=== PATIENT | female | born 1985 | race Caucasian/White ===

== ENCOUNTER 2018-07-29 03:32 | Emergency (ER) | payer SELFPAY ==
--- NOTE | 2018-07-29 03:49 | EDM.PDOC ---
ED HPI GENERAL MEDICAL PROBLEM - General Chief Complaint: Abdominal Pain Stated Complaint: SHORTNESS OF BREATH Time Seen by Provider: 07/29/18 03:48 Source of Information: Reports: Patient - History of Present Illness INITIAL COMMENTS - FREE TEXT/NARRATIVE: HISTORY AND PHYSICAL: History of present illness: [Patient presents with right upper quadrant and epigastric pain 7 out of 10 is kept her awake over the last 2 nights bloated sensation, taking a deep breath increases pain no radiation to shoulder or back however she was describing some discomfort earlier in her back and had seen a chiropractor this did not seem to help at the time this is resolved at current She generally eats healthy over the last week she has been indulging greasy foods and deep fried foods which is unusual for her over the last couple of years she has been on a strict diet plan and has lost weight she at one time was 180 pounds she has 4 children No previous surgery no prior symptoms ] Review of systems: As per history of present illness and below otherwise all systems reviewed and negative. Past medical history: As per history of present illness and as reviewed below otherwise noncontributory. Surgical history: As per history of present illness and as reviewed below otherwise noncontributory. Social history: No reported history of drug or alcohol abuse. Family history: As per history of present illness and as reviewed below otherwise noncontributory. Physical exam: HEENT: Atraumatic, normocephalic, pupils reactive, negative for conjunctival pallor or scleral icterus, mucous membranes moist, throat clear, neck supple, nontender, trachea midline. Lungs: Clear to auscultation, breath sounds equal bilaterally, chest nontender. Heart: S1S2, regular, negative for clicks, rubs, or JVD. Abdomen: Soft, nondistended, tender on deep palpation in right upper quadrant as well as epigastrium no guarding or rebound no right lower quadrant tenderness Negative for masses or hepatosplenomegaly. Negative for costovertebral tenderness. Pelvis: Stable nontender. Genitourinary: Deferred. Rectal: Deferred. Extremities: Atraumatic, negative for cords or calf pain. Neurovascular unremarkable. Neuro: Awake, alert, oriented. Cranial nerves II through XII unremarkable. Cerebellum unremarkable. Motor and sensory unremarkable throughout. Exam nonfocal. Diagnostics: [CBC CMP UA lipase hCG ] Therapeutics: [Normal saline Toradol Proton X Morphine 2 mg IV Cipro 500 by mouth by mouth dailyFirst dose now [place] Cipro [place] diet Follow-up with general surgery for a HIDA scan consideration ] Impression: Biliary colic symptoms Gallbladder wall thickening on ultrasound [ abdominal pain ] Definitive disposition and diagnosis as appropriate pending reevaluation and review of above. 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 Musculoskeletal History: Reports: None Neurological History: Reports: None Psychiatric History: Reports: None Endocrine/Metabolic History: Reports: None Oncologic (Cancer) History: Reports: None - Infectious Disease History Infectious Disease History: Reports: Chicken Pox - Past Surgical History HEENT Surgical History: Reports: None Female Surgical History: Reports: Tubal Ligation Social & Family History - Family History Family Medical History: Noncontributory - Tobacco Use Smoking Status *Q: Current Some Day Smoker Years of Tobacco use: 10 Packs/Tins Daily: 0.1 - Recreational Drug Use Recreational Drug Use: No ED ROS GENERAL - Review of Systems Review Of Systems: See Below ED EXAM, GENERAL - Physical Exam Exam: See Below Course - Vital Signs Last Recorded V/S: Last Vital Signs Temp 97.2 F 07/29/18 03:34 Pulse 80 07/29/18 03:34 Resp 16 07/29/18 03:34 BP 117/89 07/29/18 03:34 Pulse Ox 100 07/29/18 03:34 - Orders/Labs/Meds Orders: Active Orders 24 hr Category Date Time Status CPK [CREATINE KINASE,CK] [CHEM] Stat Lab 07/29/18 04:03 Received Ciprofloxacin [Ciprofloxacin HCl] Med 07/29/18 06:06 Once 500 mg PO ONETIME ONE Morphine Med 07/29/18 06:06 Once 2 mg IVPUSH ONETIME ONE Medication Orders Morphine Sulfate (Morphine) 2 mg IVPUSH ONETIME ONE Stop: 07/29/18 06:07 Labs: Laboratory Tests 07/29/18 07/29/18 07/29/18 Range/Units 04:03 04:03 04:31 WBC 5.31 (4.0-11.0) K/uL RBC 4.50 (4.30-5.90) M/uL Hgb 13.6 (12.0-16.0) g/dL Hct 40.2 (36.0-46.0) % MCV 89.3 (80.0-98.0) fL MCH 30.2 (27.0-32.0) pg MCHC 33.8 (31.0-37.0) g/dL RDW Std Deviation 42.9 (28.0-62.0) fl RDW Coeff of Joe 13 (11.0-15.0) % Plt Count 203 (150-400) K/uL MPV 9.40 (7.40-12.00) fL Neut % (Auto) 58.7 (48.0-80.0) % Lymph % (Auto) 29.0 (16.0-40.0) % [place] % (Auto) 8.3 (0.0-15.0) % Eos % (Auto) 3.8 (0.0-7.0) % Baso % (Auto) 0.2 (0.0-1.5) % Neut # (Auto) 3.1 (1.4-5.7) K/uL Lymph # (Auto) 1.5 (0.6-2.4) K/uL [place] # (Auto) 0.4 (0.0-0.8) K/uL Eos # (Auto) 0.2 (0.0-0.7) K/uL Baso # (Auto) 0.0 (0.0-0.1) K/uL Nucleated RBC % 0.0 /100WBC Nucleated RBCs # 0 K/uL Sodium 140 (136-145) mmol/L Potassium 3.5 (3.5-5.1) mmol/L Chloride 102 (98-107) mmol/L Carbon Dioxide 26.5 (21.0-32.0) mmol/L BUN 13 (7.0-18.0) mg/dL Creatinine 0.7 (0.6-1.0) mg/dL Est Cr Clr Drug Dosing 96.33 mL/min Estimated GFR (MDRD) > 60.0 ml/min Glucose 104 (74-106) mg/dL Calcium 8.9 (8.5-10.1) mg/dL Total Bilirubin 0.6 (0.2-1.0) mg/dL AST 27 (15-37) IU/L ALT 41 (14-63) IU/L Alkaline Phosphatase 41 L (46-116) U/L Total Protein 7.6 (6.4-8.2) g/dL Albumin 4.3 (3.4-5.0) g/dL Globulin 3.3 (2.6-4.0) g/dL Albumin/Globulin Ratio 1.3 (0.9-1.6) Lipase 121 (73-393) U/L Urine Color YELLOW Urine Appearance SLT CLOUDY Urine pH 6.5 (5.0-8.0) Ur Specific [place] 1.010 (1.001-1.035) Urine Protein NEGATIVE (NEGATIVE) mg/dL Urine Glucose (UA) NEGATIVE (NEGATIVE) mg/dL Urine Ketones NEGATIVE (NEGATIVE) mg/dL Urine Occult Blood MODERATE H (NEGATIVE) Urine Nitrite NEGATIVE (NEGATIVE) Urine Bilirubin NEGATIVE (NEGATIVE) Urine Urobilinogen 0.2 (<2.0) EU/dL Ur Leukocyte Esterase NEGATIVE (NEGATIVE) Urine RBC 0-2 (0-2/HPF) Urine WBC 0-1 (0-5/HPF) Ur Epithelial Cells MODERATE (NONE-FEW) Urine Bacteria RARE (NEGATIVE) Meds: Medications Generic Name Dose Route Start Last Admin Trade Name Freq PRN Reason Stop Dose Admin Morphine Sulfate 2 mg 07/29/18 06:06 Morphine IVPUSH 07/29/18 06:07 ONETIME ONE Discontinued Medications Generic Name Dose Route Start Last Admin Trade Name Freq PRN Reason Stop Dose Admin Sodium Chloride 1,000 mls @ 999 mls/hr 07/29/18 03:47 07/29/18 04:09 Normal Saline IV 07/29/18 04:47 999 mls/hr STAT ONE Administration Ketorolac Tromethamine 30 mg 07/29/18 03:47 07/29/18 04:10 Toradol IVPUSH 07/29/18 03:48 30 mg ONETIME ONE Administration Pantoprazole Sodium 80 mg 07/29/18 03:48 07/29/18 04:13 Protonix Iv IVPUSH 07/29/18 03:49 80 mg .BOLUS ONE Administration Departure - Departure Time of Disposition: 06:09 Disposition: Home, Self-Care 01 Condition: Good Clinical Impression: Biliary colic symptom, Abdominal pain - Discharge Information Referrals: PCP,None [Primary Care Provider] - Forms: ED Department Discharge Additional Instructions: [place] diet as discussed Return if symptoms persist or worsen or fever nausea vomiting chills sweats should this develop associated with pain ER referral to general surgery for consideration of HIDA scan [facility] - General Surgery Professional Building [address] [place] [address], [address] [place] [address] The following information is given to patients seen in the emergency department who are being discharged to home. This information is to outline your options for follow-up care. We provide all patients seen in our emergency department with a follow-up referral. The need for follow-up, as well as the timing and circumstances, are variable depending upon the specifics of your emergency department visit. If you don't have a primary care physician on staff, we will provide you with a referral. We always advise you to contact your personal physician following an emergency department visit to inform them of the circumstance of the visit and for follow-up with them and/or the need for any referrals to a consulting specialist. The emergency department will also refer you to a specialist when appropriate. This referral assures that you have the opportunity for follow-up care with a specialist. All of these measure are taken in an effort to provide you with optimal care, which includes your follow-up. Under all circumstances we always encourage you to contact your private physician who remains a resource for coordinating your care. When calling for follow-up care, please make the office aware that this follow-up is from your recent emergency room visit. If for any reason you are refused follow-up, please contact the [facility] emergency department at and asked to speak to the emergency department charge nurse. - My Orders Last 24 Hours: My Active Orders 07/29/18 04:03 CPK [CREATINE KINASE,CK] [CHEM] Stat 07/29/18 06:06 Ciprofloxacin [Ciprofloxacin HCl] 500 mg PO ONETIME ONE Morphine 2 mg IVPUSH ONETIME ONE - Assessment/Plan Last 24 Hours: My Active Orders 07/29/18 04:03 CPK [CREATINE KINASE,CK] [CHEM] Stat 07/29/18 06:06 Ciprofloxacin [Ciprofloxacin HCl] 500 mg PO ONETIME ONE Morphine 2 mg IVPUSH ONETIME ONE
[2018-07-29] MEDS: Sodium Chloride 0.9% 1,000 ML IV ONE (04:09)
[2018-07-29] MEDS: Ketorolac 30 MG/ML SDV IVPUSH ONE (04:10)
[2018-07-29] MEDS: Pantoprazole 40 MG Vial IVPUSH ONE (04:13)
[2018-07-29 04:32] LABS: CHLORIDE,CL 102 mmol/L (98-107); SODIUM,NA 140 mmol/L (136-145)
--- NOTE | 2018-07-29 05:32 | CR ---
INDICATION: Patient w/mid abdominal pain for 1 day TECHNIQUE: Abdominal radiograph 3 views COMPARISON: None FINDINGS: Bowel: The bowel gas pattern is normal without evidence of bowel obstruction. Soft tissue: No evidence of pneumoperitoneum present. No suspicious calcifications noted. Bone: Unremarkable for age. IMPRESSION: 1. Unremarkable appearance of the visualized abdomen. Dictated by: Mo Ya MD @ 07/29/2018 05:29:56 (Electronically Signed)
--- NOTE | 2018-07-29 05:34 | US ---
INDICATION: Epigastric abdominal pain TECHNIQUE: Ultrasound abdomen limited. Sonographic images of the right upper quadrant were obtained using garces-scale and color Doppler images. COMPARISON: None FINDINGS: Liver: The liver parenchyma is normal in echotexture. Gallbladder: The posterior dependent wall of the gallbladder is asymmetrically thickened, measuring 5 mm. No pericholecystic fluid is present. No sonographic [place] sign is present. Common bile duct: 5 mm. No intrahepatic biliary ductal dilatation seen. Pancreas: The visualized portions of the pancreatic head and body are normal in appearance. Right Kidney: 12 cm. No hydronephrosis or ureterectasis is seen. Vascular: Proximal abdominal aorta and IVC are normal in caliber. The visualized portal vein is patent with normal anterograde flow. IMPRESSION: 1. The posterior dependent wall of the gallbladder is asymmetrically thickened, measuring 5 mm. The etiology and significance are uncertain. No gallstones are identified. Dictated by Mo Ya MD @ 07/29/2018 5:33:13 AM Dictated by: Mo Ya MD @ 07/29/2018 05:33:19 (Electronically Signed)
[2018-07-29] MEDS: Morphine 2 MG/ML Syringe IVPUSH ONE (06:12)
[2018-07-29] MEDS: Ciprofloxacin 500 MG Tab PO ONE (06:12)
[2018-07-29 06:25] VITALS: BP 129/74
== END 2018-07-29 06:25 | disposition home or self-care (01) ==
LOC: MW.ED 03:32
DX: K80.50 Calculus of bile duct without cholangitis or cholecystitis without obstruction (principal); F17.210 Nicotine dependence, cigarettes, uncomplicated
CPT/HCPCS: 36415; 74019; 76705; 80053; 81001; 82550; 83690; 85025; 96361; 96374; 96375; 99284; A9270; C9113; J1885; J7040; 99283

== ENCOUNTER 2019-02-22 02:45 | Emergency (ER) | payer BC ==
[2019-02-22 03:15] VITALS: PULSE 82
--- NOTE | 2019-02-22 03:28 | EDM.PDOC ---
ED HPI GENERAL MEDICAL PROBLEM - General Chief Complaint: ENT Problem Stated Complaint: RT EAR HURTS Time Seen by Provider: 02/22/19 03:13 - History of Present Illness INITIAL COMMENTS - FREE TEXT/NARRATIVE: HISTORY AND PHYSICAL: History of present illness: The patient is a healthy 33-year-old female who denies and says that she has had some cough and cold symptoms along with sinus congestion and drainage for the last several days. She says that tonight she started feeling pain and fluid and pressure in her right ear which is why she came to the emergency department. She's not had a fever nausea vomiting or diarrhea and she did not get her influenza shot this year. She took [id number] meds for the pain but has not taken any antihistamines to help with the sinus fluid. She has had no drainage from her right ear and no headache pain. Review of systems: As per history of present illness and below otherwise all systems reviewed and negative. Past medical history: As per history of present illness and as reviewed below otherwise noncontributory. Surgical history: As per history of present illness and as reviewed below otherwise noncontributory. Social history: No reported history of drug or alcohol abuse. Family history: As per history of present illness and as reviewed below otherwise noncontributory. Physical exam: Well-developed well-nourished female who is nontoxic and vital signs are noted by me. She does have nasal quality to voice but is not breathless HEENT: Atraumatic, normocephalic, pupils reactive, negative for conjunctival pallor or scleral icterus, mucous membranes moist, throat clear, neck supple, nontender, trachea midline. There is no gross nasal drainage but there is nasal quality to voice, there is no discrete sinus tenderness and the turbinates are boggy bilaterally. The left TM is within normal limits and the right TM is very erythematous with some slight bulging the light reflex is still present. Lungs: Clear to auscultation, breath sounds equal bilaterally, chest nontender. Heart: S1S2, regular rate and rhythm no overt murmurs Abdomen: Soft, nondistended, nontender. NABS Pelvis: Deferred Genitourinary: Deferred. Rectal: Deferred. Extremities: Atraumatic, full range of motion. Neurovascular unremarkable. Neuro: Awake, alert, oriented. Cranial nerves II through XII unremarkable. Cerebellum unremarkable. Motor and sensory unremarkable throughout. Exam nonfocal. Diagnostics: Therapeutics: [] Impression: Early right otitis media sinusitis Definitive disposition and diagnosis as appropriate pending reevaluation and review of above. Right Ear Pain Score (Numeric/FACES): 8 - Related Data Allergies Allergy/AdvReac Type Severity Reaction Status Date / Time No Known Allergies Allergy Verified 02/22/19 03:11 Home Meds: Home Meds . 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 Musculoskeletal History: Reports: None Neurological History: Reports: None Psychiatric History: Reports: None Endocrine/Metabolic History: Reports: None Oncologic (Cancer) History: Reports: None - Infectious Disease History Infectious Disease History: Reports: Chicken Pox - Past Surgical History HEENT Surgical History: Reports: None Female Surgical History: Reports: Tubal Ligation Social & Family History - Family History Family Medical History: Noncontributory - Tobacco Use Smoking Status *Q: Former Smoker Used Tobacco, but Quit: Yes Month/Year Tobacco Last Used: 2016 - Caffeine Use Caffeine Use: Reports: Coffee - Recreational Drug Use Recreational Drug Use: No ED ROS GENERAL - Review of Systems Review Of Systems: ROS reveals no pertinent complaints other than HPI. ED EXAM, GENERAL - Physical Exam Exam: See Below (See dictation) Course - Vital Signs Last Recorded V/S: Last Vital Signs Temp 36.5 C 02/22/19 03:12 Pulse 82 02/22/19 03:12 Resp 18 02/22/19 03:12 BP 109/76 02/22/19 03:12 Pulse Ox 97 02/22/19 03:12 Departure - Departure Time of Disposition: 03:27 Disposition: Home, Self-Care 01 Condition: Good Clinical Impression: Otitis media Qualifiers: Otitis media type: unspecified Laterality: right Qualified Code(s): H66.91 - Otitis media, unspecified, right ear Sinusitis Qualifiers: Sinusitis location: unspecified location Chronicity: acute Recurrence: not specified as recurrent Qualified Code(s): J01.90 - Acute sinusitis, unspecified - Discharge Information Referrals: PCP,None [Primary Care Provider] - Additional Instructions: The following information is given to patients seen in the emergency department who are being discharged to home. This information is to outline your options for follow-up care. We provide all patients seen in our emergency department with a follow-up referral. The need for follow-up, as well as the timing and circumstances, are variable depending upon the specifics of your emergency department visit. If you don't have a primary care physician on staff, we will provide you with a referral. We always advise you to contact your personal physician following an emergency department visit to inform them of the circumstance of the visit and for follow-up with them and/or the need for any referrals to a consulting specialist. The emergency department will also refer you to a specialist when appropriate. This referral assures that you have the opportunity for followup care with a specialist. All of these measure are taken in an effort to provide you with optimal care, which includes your followup. Under all circumstances we always encourage you to contact your private physician who remains a resource for coordinating your care. When calling for followup care, please make the office aware that this follow-up is from your recent emergency room visit. If for any reason you are refused follow-up, please contact the [facility] emergency department at and ask to speak to the emergency department charge nurse. Primary care- Internal Medicine and Family [address] [address] Please take antibiotics, Augmentin, that you have been prescribed from [facility] and use [id number] antihistamines and decongestants as we spoke about. Push hydration and call and schedule a follow-up appointment with your provider or one of hours for reevaluation and further care of the symptoms. Use [id number] Tylenol or ibuprofen for pain management and return to ER as needed and as discussed
[2019-02-22 03:42] VITALS: BP 101/70
== END 2019-02-22 03:42 | disposition home or self-care (01) ==
LOC: MW.ED 02:45
DX: H66.91 Otitis media, unspecified, right ear (principal); J01.90 Acute sinusitis, unspecified; Z87.891 Personal history of nicotine dependence
CPT/HCPCS: 99282; 99283

== ENCOUNTER 2023-10-13 19:44 | Emergency (ER) | payer SELFPAY ==
[2023-10-13 20:04] VITALS: BP 117/85; PULSE 88
== END 2023-10-13 20:28 | disposition home or self-care (01) ==
LOC: MW.ED 19:44
DX: B37.0 Candidal stomatitis (principal); Z79.899 Other long term (current) drug therapy; Z75.8 Other problems related to medical facilities and other health care
CPT/HCPCS: 99282